=== PATIENT | female | born 1990 | race Caucasian/White ===

== ENCOUNTER 2020-03-10 02:15 | Inpatient (IN) | payer BC, OTHER ==
[2020-03-10] MEDS ORDERED: Nalbuphine 10 MG/ML Syringe IVPUSH PRN (08:25)
[2020-03-10] MEDS ORDERED: Sodium Chloride 0.9% 10 ML Syringe FLUSH PRN (08:25)
[2020-03-10] MEDS ORDERED: Ondansetron 4 MG/2 ML SDV IVPUSH PRN (08:25)
[2020-03-10] MEDS ORDERED: Oxytocin/Lactated Ringers 10 UNIT/1,000 ML BAG IV SCH ×2 (08:30)
[2020-03-10] MEDS ORDERED: Misoprostol 25 MCG (1/4 of 100 MCG) Tab VAG ONE (08:31)
--- NOTE | 2020-03-10 09:22 | PCM.LDHP ---
L&D History of Present Illness - General Date of Service: 03/10/20 Admit Problem/Dx: Patient Status Order with Admit Dx/Problem 03/10/20 08:25 Patient Status [ADT] Routine Admission Diagnosis/Problem Admission Diagnosis/Problem Source of Information: Patient History Limitations: Reports: No Limitations - History of Present Illness Introduction:: Patient is a 29 y/o at 40 2/7 wks who presents for elective IOL. Doing well. 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: 0 LMP (Approximate): - Past Surgical History HEENT Surgical History: Reports: Oral Surgery (tooth extraction) Social & Family History - Tobacco Use Smoking Status *Q: Former Smoker - Alcohol Use Alcohol Use History: No - Recreational Drug Use Recreational Drug Use: No H&P Review of Systems - Review of Systems: Review Of Systems: See Below General: Reports: No Symptoms Pulmonary: Reports: No Symptoms Cardiovascular: Reports: No Symptoms Gastrointestinal: Reports: No Symptoms Genitourinary: Reports: No Symptoms Musculoskeletal: Reports: No Symptoms Psychiatric: Reports: No Symptoms Neurological: Reports: No Symptoms L&D Exam - Exam Exam: See Below - OB Specific Contraction Intensity: Irritability Movement: Active Heart Tones: Present Heart Tones per Min: 140 Heart Rate (FHR) Variability: Moderate (6-25 bmp) Presentation: Vertex - Morales Score Morales Score Cervix Position: Midposition Morales Score Consistency: Soft Morales Score Effacement: 51-70% Morales Score Dilation: 1-2 cm Morales Score 's Station: -2 Morales Score Total: 7 - Exam General: Alert, Oriented, Cooperative Lungs: Clear to Auscultation, Normal Respiratory Effort Cardiovascular: Regular Rate, Regular Rhythm GI/Abdominal Exam: Soft, Non-Tender Genitourinary: Normal external exam Extremities: Normal Inspection Skin: Warm, Dry, Intact - Patient Data Lab Results Last 24 hrs: Laboratory Results - last 24 hr 03/10/20 Range/Units 08:40 WBC 7.03 (3.98-10.04) K/mm3 RBC 4.12 (3.98-5.22) M/mm3 Hgb 13.2 (11.2-15.7) gm/dl Hct 38.5 (34.1-44.9) % MCV 93.4 (79.4-94.8) fl MCH 32.0 (25.6-32.2) pg MCHC 34.3 (32.2-35.5) g/dl RDW Std Deviation 43.3 (36.4-46.3) fL Plt Count 185 (182-369) K/mm3 MPV 9.9 (9.4-12.3) fl Neut % (Auto) 71.2 H (34.0-71.1) % Lymph % (Auto) 20.2 (19.3-51.7) % [place] % (Auto) 7.5 (4.7-12.5) % Eos % (Auto) 0.7 (0.7-5.8) Baso % (Auto) 0.1 (0.1-1.2) % Neut # (Auto) 5.00 (1.56-6.13) K/mm3 Lymph # (Auto) 1.42 (1.18-3.74) K/mm3 [place] # (Auto) 0.53 H (0.24-0.36) K/mm3 Eos # (Auto) 0.05 (0.04-0.36) K/mm3 Baso # (Auto) 0.01 (0.01-0.08) K/mm3 Result Diagrams: 03/10/20 08:40 03/10/20 08:40 - Problem List (1) 40 weeks gestation of SNOMED Code(s): 84913334 ICD Code: Z3A.40 - 40 WEEKS GESTATION OF Status: Acute Current Visit: Yes (2) Gestational hypertension SNOMED Code(s): 497211898 ICD Code: O13.9 - GESTATIONAL HTN W/O SIGNIFICANT PROTEINURIA, UNSP TRIMESTER Status: Acute Current Visit: Yes Qualifiers: Trimester: third trimester Qualified Code(s): O13.3 - Gestational [-induced] hypertension without significant proteinuria, third trimester Problem List Initiated/Reviewed/Updated: Yes Orders Last 24hrs: Active Orders 24 hr Category Date Time Status Patient Status [ADT] Routine ADT 03/10/20 08:25 Active Activity as Tolerated [RC] PFP Care 03/10/20 08:25 Active Communication Order [RC] ASDIRECTED Care 03/10/20 08:25 Active Heart Tones [RC] ASDIRECTED Care 03/10/20 08:26 Active Non Stress Test [RC] PER UNIT ROUTINE Care 03/10/20 08:25 Active Notify Provider [RC] PFP Care 03/10/20 08:25 Active Notify Provider [RC] PRN Care 03/10/20 08:25 Active Peripheral IV Care [RC] . DIRECTED Care 03/10/20 08:26 Active Pump Management, Intrathecal [RC] ASDIRECTED Care 03/10/20 08:27 Active Vital Signs [RC] PER UNIT ROUTINE Care 03/10/20 08:25 Active Regular Diet [DIET] Diet 03/10/20 Breakfast Active CORONAVIRUS COVID-19 LESTER [MOLEC] Stat Lab 03/10/20 09:05 Received RAPID PLASMA REAGIN,RPR [CHEM] Routine Lab 03/10/20 08:40 Received TYPE AND SCREEN [BBK] Stat Lab 03/10/20 08:40 Received Lactated Ringers [Ringers, Lactated] 1,000 ml Med 03/10/20 08:30 Active IV ASDIRECTED Nalbuphine [Nubain] Med 03/10/20 08:25 Active 10 mg IVPUSH Q2H PRN Ondansetron [Zofran] Med 03/10/20 08:25 Active 4 mg IVPUSH Q4H PRN Oxytocin/Lactated Ringers [Pitocin in LR 10 Units/1,000 Med 03/10/20 08:30 Active ML] 10 unit in 1,000 ml IV .CONTINUOUS Oxytocin/Lactated Ringers [Pitocin in LR 10 Units/1,000 Med 03/10/20 08:30 Active ML] 10 unit in 1,000 ml IV TITRATE Sodium Chloride 0.9% [Saline Flush] Med 03/10/20 08:25 Active 10 ml FLUSH ASDIRECTED PRN Electronic Heart Tones Ext w TOCO [WOMSER] Oth 03/10/20 08:25 Ordered Routine Electronic Heart Tones Internal [WOMSER] Per Unit Oth 03/10/20 08:25 Ordered Routine Peripheral IV Insertion Adult [OM.PC] Routine Oth 03/10/20 08:25 Ordered Resuscitation Status Routine Resus Stat 03/10/20 08:25 Ordered Medication Orders Oxytocin/Lactated Ringer's (Pitocin In Lr 10 Units/1,000 Ml) 10 unit in 1,000 mls @ 12 mls/hr IV TITRATE TESFAYE; Protocol Oxytocin/Lactated Ringer's (Pitocin In Lr 10 Units/1,000 Ml) 10 unit in 1,000 mls @ 100 mls/hr IV .CONTINUOUS TESFAYE Lactated Ringer's (Ringers, Lactated) 1,000 mls @ 100 mls/hr IV ASDIRECTED TESFAYE Nalbuphine HCl (Nubain) 10 mg IVPUSH Q2H PRN PRN Reason: Pain Ondansetron HCl (Zofran) 4 mg IVPUSH Q4H PRN PRN Reason: Nausea/Vomiting Sodium Chloride (Saline Flush) 10 ml FLUSH ASDIRECTED PRN PRN Reason: Keep Vein Open Assessment/Plan Comment:: * Labs to be done. Patient with mild range BP's. Will add on preeclamptic labs * Cytotec placed and ulloa bulb. Will transition to pitocin and AROM when able * GBS negative * Pain management per patient preference * Anticipate
[2020-03-10] MEDS ORDERED: Bupivacaine/fentaNYL/NS 100 ML Bag EPIDUR PRN (11:00)
[2020-03-10] MEDS ORDERED: fentaNYL 100 MCG/2 ML SDV EPIDUR PRN (11:00)
[2020-03-10] MEDS ORDERED: ePHEDrine 50 MG/ML SDV IVPUSH PRN (11:00)
[2020-03-10] MEDS ORDERED: diphenhydrAMINE 50 MG/ML SDV IVPUSH PRN (11:00)
[2020-03-10] MEDS: Lactated Ringers 1,000 ML IV SCH ×3 (12:03→22:21)
--- NOTE | 2020-03-10 16:10 | PCM.PNLD ---
Labor Progress Note - VS & Meds Active Medications: Current Medications Diphenhydramine HCl (Benadryl) 25 mg IVPUSH Q6H PRN PRN Reason: pruritis Ephedrine Sulfate (Ephedrine Sulfate) 5 mg IVPUSH ASDIRECTED PRN PRN Reason: Hypotension Fentanyl (Sublimaze) 100 mcg EPIDUR Q3H PRN PRN Reason: Pain Fentanyl/Bupivacaine HCl (Fentanyl/Bupivacaine/Ns 2 Mcg-0.125% 100 Ml) 100 ml EPIDUR ASDIRECTED PRN PRN Reason: Pain Oxytocin/Lactated Ringer's (Pitocin In Lr 10 Units/1,000 Ml) 10 unit in 1,000 mls @ 12 mls/hr IV TITRATE TESFAYE; Protocol Last Admin: 03/10/20 13:57 Dose: 2 munits/min, 12 mls/hr Documented by: Oxytocin/Lactated Ringer's (Pitocin In Lr 10 Units/1,000 Ml) 10 unit in 1,000 mls @ 100 mls/hr IV .CONTINUOUS TESFAYE Lactated Ringer's (Ringers, Lactated) 1,000 mls @ 100 mls/hr IV ASDIRECTED TESFAYE Last Admin: 03/10/20 12:03 Dose: 100 mls/hr Documented by: Nalbuphine HCl (Nubain) 10 mg IVPUSH Q2H PRN PRN Reason: Pain Ondansetron HCl (Zofran) 4 mg IVPUSH Q4H PRN PRN Reason: Nausea/Vomiting Sodium Chloride (Saline Flush) 10 ml FLUSH ASDIRECTED PRN PRN Reason: Keep Vein Open Discontinued Medications Misoprostol (Cytotec) 25 mcg VAG ONETIME ONE Stop: 03/10/20 08:32 Last Admin: 03/10/20 09:12 Dose: 25 mcg Documented by: - Uterine Contractions Uterine Monitoring Mode: External [place] Contraction Intensity: Mild Uterine Resting Tone: Soft - Monitoring Monitor Mode: External Ultrasound Heart Rate (FHR) Baseline: 150 Heart Rate (FHR) Variability: Moderate (6-25 bmp) Accelerations: Present, 15x15 Decelerations: None Strip Review: Category I - Vaginal Exam Dilation (cm): 4 Effacement (Percent): 75 Station: -2 Cervical Position: Midposition - Labor Progress (Free Text) Labor Progress: Doing well. Pitocin at 4. AROM performed.
--- NOTE | 2020-03-10 18:52 | PCM.PREANE ---
Preanesthetic Assessment - Procedure Proposed Procedure: SANDY - Anesthesia/Transfusion/Family Hx Anesthesia History: No Prior Anesthesia Family History of Anesthesia Reaction: No Transfusion History: No Prior Transfusion(s) Type of Transfusion Reactions: Reports: Unknown - Review of Systems General: No Symptoms Pulmonary: No Symptoms Cardiovascular: No Symptoms Gastrointestinal: No Symptoms Neurological: No Symptoms Other: Reports: None - Physical Assessment Height: 5 ft 5 in Weight: 103.419 kg ASA Class: 2 Mental Status: Alert & Oriented x3 Airway Class: Mallampati = 1 Dentition: Reports: Normal Dentition Thyro-Mental Finger Breadths: 3 Mouth Opening Finger Breadths: 3 ROM/Head Extension: Full Cardiovascular: Regular Rate, Regular Rhythm - Lab Values: Laboratory Last Values WBC 7.03 K/mm3 (3.98-10.04) 03/10/20 08:40 RBC 4.12 M/mm3 (3.98-5.22) 03/10/20 08:40 Hgb 13.2 gm/dl (11.2-15.7) 03/10/20 08:40 Hct 38.5 % (34.1-44.9) 03/10/20 08:40 MCV 93.4 fl (79.4-94.8) 03/10/20 08:40 MCH 32.0 pg (25.6-32.2) 03/10/20 08:40 MCHC 34.3 g/dl (32.2-35.5) 03/10/20 08:40 RDW Std Deviation 43.3 fL (36.4-46.3) 03/10/20 08:40 Plt Count 185 K/mm3 (182-369) 03/10/20 08:40 MPV 9.9 fl (9.4-12.3) 03/10/20 08:40 Neut % (Auto) 71.2 % (34.0-71.1) H 03/10/20 08:40 Lymph % (Auto) 20.2 % (19.3-51.7) 03/10/20 08:40 [place] % (Auto) 7.5 % (4.7-12.5) 03/10/20 08:40 Eos % (Auto) 0.7 (0.7-5.8) 03/10/20 08:40 Baso % (Auto) 0.1 % (0.1-1.2) 03/10/20 08:40 Neut # (Auto) 5.00 K/mm3 (1.56-6.13) 03/10/20 08:40 Lymph # (Auto) 1.42 K/mm3 (1.18-3.74) 03/10/20 08:40 [place] # (Auto) 0.53 K/mm3 (0.24-0.36) H 03/10/20 08:40 Eos # (Auto) 0.05 K/mm3 (0.04-0.36) 03/10/20 08:40 Baso # (Auto) 0.01 K/mm3 (0.01-0.08) 03/10/20 08:40 Creatinine 0.7 mg/dL (0.55-1.02) 03/10/20 08:40 Est Cr Clr Drug Dosing 105.74 mL/min 03/10/20 08:40 Estimated GFR (MDRD) > 60 mL/min (>60) 03/10/20 08:40 AST 18 U/L (15-37) 03/10/20 08:40 ALT 16 U/L (14-59) 03/10/20 08:40 SARS-CoV-2 RNA (LESTER) Negative (NEGATIVE) 03/10/20 09:05 Blood Type O POSITIVE 03/10/20 08:40 Gel Antibody Screen Negative 03/10/20 08:40 - Allergies Allergies/Adverse Reactions: Allergies Allergy/AdvReac Type Severity Reaction Status Date / Time No Known Allergies Allergy Verified 03/10/20 09:11 - Blood Blood Available: No - Acknowledgements Anesthesia Type Planned: Epidural Pt an Appropriate Candidate for the Planned Anesthesia: Yes Alternatives and Risks of Anesthesia Discussed w Pt/Guardian: Yes Pt/Guardian Understands and Agrees with Anesthesia Plan: Yes PreAnesthesia Questionnaire Cardiovascular History: Reports: None Respiratory History: Reports: None Gastrointestinal History: Reports: GERD 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: : 1 Para: 0 Neurological History: Reports: Migraines Psychiatric History: Reports: Anxiety, Depression Other Psychiatric History: Hx of anxiety and depression, pt states she has not been on meds for years Endocrine/Metabolic History: Reports: None - Past Surgical History HEENT Surgical History: Reports: Oral Surgery (tooth extraction) - SUBSTANCE USE Smoking Status *Q: Former Smoker Tobacco Use Within Last Twelve Months: No Second Hand Smoke Exposure: No Days Per Week of Alcohol Use: 0 Recreational Drug Use History: No - HOME MEDS Home Medications: Home Meds Acetaminophen [Tylenol] 1,000 mg PO Q4H PRN 03/10/20 [History] Loratadine [Claritin] 10 mg PO DAILY 03/10/20 [History] Pnv No.95/Ferrous Fum/Folic AC [ Tablet] 1 each PO DAILY 03/10/20 [History] - CURRENT (IN HOUSE) MEDS Current Meds: Current Medications Diphenhydramine HCl (Benadryl) 25 mg IVPUSH Q6H PRN PRN Reason: pruritis Ephedrine Sulfate (Ephedrine Sulfate) 5 mg IVPUSH ASDIRECTED PRN PRN Reason: Hypotension Fentanyl (Sublimaze) 100 mcg EPIDUR Q3H PRN PRN Reason: Pain Fentanyl/Bupivacaine HCl (Fentanyl/Bupivacaine/Ns 2 Mcg-0.125% 100 Ml) 100 ml EPIDUR ASDIRECTED PRN PRN Reason: Pain Oxytocin/Lactated Ringer's (Pitocin In Lr 10 Units/1,000 Ml) 10 unit in 1,000 mls @ 12 mls/hr IV TITRATE TESFAYE; Protocol Last Admin: 03/10/20 13:57 Dose: 2 munits/min, 12 mls/hr Documented by: Oxytocin/Lactated Ringer's (Pitocin In Lr 10 Units/1,000 Ml) 10 unit in 1,000 mls @ 100 mls/hr IV .CONTINUOUS TESFAYE Lactated Ringer's (Ringers, Lactated) 1,000 mls @ 100 mls/hr IV ASDIRECTED TESFAYE Last Admin: 03/10/20 12:03 Dose: 100 mls/hr Documented by: Nalbuphine HCl (Nubain) 10 mg IVPUSH Q2H PRN PRN Reason: Pain Ondansetron HCl (Zofran) 4 mg IVPUSH Q4H PRN PRN Reason: Nausea/Vomiting Sodium Chloride (Saline Flush) 10 ml FLUSH ASDIRECTED PRN PRN Reason: Keep Vein Open Discontinued Medications Misoprostol (Cytotec) 25 mcg VAG ONETIME ONE Stop: 03/10/20 08:32 Last Admin: 03/10/20 09:12 Dose: 25 mcg Documented by:
[2020-03-11] MEDS ORDERED: Bupivacaine 0.25% 10 ML SDV ONE
[2020-03-11] MEDS: Lactated Ringers 1,000 ML IV SCH (01:24)
[2020-03-11] MEDS ORDERED: Sodium Chloride 0.9% 10 ML Syringe FLUSH PRN (01:39)
[2020-03-11] MEDS ORDERED: Citric Acid/Sodium Citrate Solution 30 ML Cup PO ONE (01:39)
[2020-03-11] MEDS ORDERED: Metoclopramide 10 MG/2 ML SDV IVPUSH ONE (01:39)
[2020-03-11] MEDS ORDERED: Lactated Ringers 1,000 ML IV SCH (01:45)
--- NOTE | 2020-03-11 01:47 | PCM.SN.2 ---
- Free Text/Narrative Note: 0145 Called in earlier this AM for concerns of recurrent variable decelerations. Patient 8-9 cm dilated. These did resolve with position changes. Reviewed with family that we would continue to monitor closely and move toward vaginal delivery. Unfortunately now baby has had baseline shift to the 190's-200. Is complete, but do not think we should continue to monitor. Do recommend moving forward with for concerns of well being. Family agrees. OR crew, peds, etc notified. Gia Shankar MD
--- NOTE | 2020-03-11 01:47 | PCM.OPNOTE ---
- General Post-Op/Procedure Note Date of Surgery/Procedure: 03/11/20 Operative Procedure(s): Primary low transverse - vacuum assist Findings: Baby girl in a vertex presentation. APGARS of 2, 7, 9. Weight of 11 lbs 4 oz. Grossly normal appearance of the uterus, fallopian tubes, and ovaries. Pre Op Diagnosis: 40 3/7 wks gestation. Non reassuring status Post-Op Diagnosis: Same. macrosomia Anesthesia Technique: Epidural Primary Surgeon: Gia Shankar Secondary Surgeon: Yanet Guerrero Anesthesia Provider: May Mims Reason Rice Milling Supervisor Was Necessary: BMI of patient. Speed/safety of procedure Pathology: Cord gasses collected. Cord blood collected. placenta discarded Fluid Replacement, Intraop: 1,300 Output, Urine Amount: 225 EBL in mLs: 2,000 Complications: None Condition: Good Free Text/Narrative:: The risks, benefits, indications, potential complications, and alternatives were explained to the patient and informed consent obtained. After induction of anesthesia, the patient was placed in a supine position and then draped and prepped in the usual sterile manner. A Pfannenstiel incision was made and carried down through the subcutaneous tissue to the fascia. Fascial incision was made and extended transversely. The fascia was from the underlying rectus tissue superiorly and inferiorly. The peritoneum was identified and entered. Peritoneal incision was extended longitudinally. The utero-vesical peritoneal reflection was incised transversely and the bladder flap was bluntly freed from the lower uterine segment. A low transverse uterine incision was made sharply with a scalpel and extended bluntly in a cephalocaudad direction. Hand placed into the hysterotomy and attempt made to bring baby through. Baby did lose tone at this time and began to rotate. Hand placed deeper into the uterus and baby brought level with hysterotomy. Vacuum placed and infant able to be delivered with gentle traction and also normal fundal pressure. Cord clamped and cut. Baby handed to awaiting Cover Operator. APGARS as above. Cord segment obtained for cord gasses. Cord blood was obtained for evaluation. The placenta was removed intact and appeared normal. The uterus was exteriorized and cleared of clots. Swiftly bleeding vessel noted at left aspect of hysterotomy. This was controlled with several interrupted sutures of 0 Vicryl placed in figure of eight fashion. Next, the uterine incision was closed with running locked sutures of 0 Vicryl. Hemostasis was obtained with second imbricating layer of 0 Vicryl. The uterus was then placed back into the abdomen. The infracolic gutters were cleared of blood clots. The fascia was then reapproximated with running sutures of 0 Vicryl. The subcutaneous tissue was irrigated with sterile warm normal saline, hemostasis obtained with cautery. This layer was closed with a running 0 Vicryl. The skin was reapproximated with running Subcuticular 4-0 monocryl sutures. Instrument, sponge, and needle counts were correct prior the abdominal closure and at the conclusion of the case. 2nd dose of Ancef given in PACU given EBL.
[2020-03-11] MEDS ORDERED: Morphine PF 1 MG/ML Amp ONE (01:55)
[2020-03-11] MEDS ORDERED: Ketorolac 30 MG/ML SDV ONE (01:55)
[2020-03-11] MEDS ORDERED: Lactated Ringers 2,000 ML ONE (01:55)
[2020-03-11] MEDS ORDERED: ceFAZolin 1 GM Vial ONE ×2 (01:55→02:51)
[2020-03-11] MEDS ORDERED: Oxytocin 10 Units/1 ML SDV ONE (01:55)
[2020-03-11] MEDS ORDERED: Ondansetron 4 MG/2 ML SDV ONE (01:55)
[2020-03-11] MEDS ORDERED: Sodium Bicarbonate 8.4% 50 MEQ/50 ML SDV ONE (01:56)
[2020-03-11] MEDS ORDERED: Lidocaine 2% with EPINEPHrine 1:200,000 20 ML SDV ONE (01:56)
[2020-03-11] MEDS ORDERED: fentaNYL 100 MCG/2 ML SDV ONE (01:58)
[2020-03-11] MEDS ORDERED: Azithromycin 500 MG in Sodium Chloride 0.9% 250 ML IV ONE (02:00)
[2020-03-11] MEDS ORDERED: ceFAZolin 2 GM in Premix Bag 1 BAG IV ONE ×2 (02:00→03:02)
[2020-03-11] MEDS ORDERED: Meperidine 50 MG/ML Vial ONE (02:20)
[2020-03-11] MEDS ORDERED: Carboprost Tromethamine 250 MCG/1 ML Amp ONE (02:29)
[2020-03-11] MEDS ORDERED: Ondansetron 4 MG/2 ML SDV IVPUSH PRN (02:33)
[2020-03-11] MEDS ORDERED: diphenhydrAMINE 50 MG/ML SDV IVPUSH PRN ×2 (02:33→04:38)
[2020-03-11] MEDS ORDERED: fentaNYL 100 MCG/2 ML SDV IVPUSH PRN (02:33)
--- NOTE | 2020-03-11 03:06 | PCM.POSTAN ---
POST ANESTHESIA ASSESSMENT - MENTAL STATUS Mental Status: Alert, Oriented - VITAL SIGNS Vital Signs: Last Vital Signs Temp 98.8 F 03/10/20 08:41 Pulse 83 03/10/20 08:41 Resp 16 03/10/20 08:41 BP 138/92 H 03/10/20 08:41 Pulse Ox 99 03/10/20 08:41 0253 110/83 126 18 98.6 99% - RESPIRATORY Respiratory Status: Respiratory Rate WNL, Airway Patent, O2 Saturation Stable, Supplemental Oxygen - CARDIOVASCULAR CV Status: Pulse Rate WNL, Blood Pressure Stable - GASTROINTESTINAL GI Status: No Symptoms - PAIN Pain Score: 0 (intermittent shakes) - POST OP HYDRATION Hydration Status: Adequate & Stable
[2020-03-11] MEDS ORDERED: Acetaminophen/oxyCODONE 325-5 MG Tab PO PRN (04:38)
[2020-03-11] MEDS ORDERED: Ibuprofen 600 MG Tab PO PRN (04:38)
[2020-03-11] MEDS ORDERED: Ondansetron 4 MG/2 ML SDV IV PRN (04:38)
[2020-03-11] MEDS ORDERED: Dextrose 5%-Lactated Ringers 1,000 ML IV SCH (04:38)
[2020-03-11] MEDS: Acetaminophen/oxyCODONE 325-5 MG Tab PO PRN ×2 (05:49→13:31)
--- NOTE | 2020-03-11 07:58 | PCM48HPAN ---
Post Anesthesia Note - EVALUATION WITHIN 48HRS OF ANESTHETIC Vital Signs in Normal Range: Yes Patient Participated in Evaluation: Yes Respiratory Function Stable: Yes Airway Patent: Yes Cardiovascular Function Stable: Yes Hydration Status Stable: Yes Pain Control Satisfactory: Yes Nausea and Vomiting Control Satisfactory: Yes Mental Status Recovered: Yes Vital Signs: Last Vital Signs Temp 37.1 C 03/11/20 03:40 Pulse 83 03/10/20 08:41 Resp 18 03/11/20 03:40 BP 117/63 03/11/20 03:40 Pulse Ox 96 03/11/20 03:40
[2020-03-11] MEDS: Ketorolac 30 MG/ML SDV IVPUSH SCH ×3 (09:07→20:23)
[2020-03-11] MEDS: Simethicone 80 MG Tab.Chew PO PRN (13:31)
[2020-03-12] MEDS: Simethicone 80 MG Tab.Chew PO PRN (01:13)
[2020-03-12] MEDS: Ibuprofen 600 MG Tab PO PRN (04:14)
--- NOTE | 2020-03-12 07:54 | PCM.PNPP ---
- General Info Date of Service: 03/12/20 Functional Status: Reports: Pain Controlled, Tolerating Diet, Ambulating, Urinating - Review of Systems General: Reports: No Symptoms Pulmonary: Reports: No Symptoms. Denies: Shortness of Breath Cardiovascular: Reports: No Symptoms. Denies: Lightheadedness Gastrointestinal: Reports: Abdominal Pain (managed with medications ) Genitourinary: Reports: No Symptoms Musculoskeletal: Reports: No Symptoms - Patient Data Vital Signs - Most Recent: Last Vital Signs Temp 36.9 C 03/12/20 04:06 Pulse 96 03/12/20 04:06 Resp 16 03/12/20 04:06 BP 121/56 L 03/12/20 04:06 Pulse Ox 97 03/12/20 04:06 Weight - Most Recent: 103.419 kg I&O - Last 24 Hours: Intake & Output 03/11/20 03/12/20 03/12/20 22:59 06:59 14:59 Intake Total 1000 1300 Output Total 575 1200 525 Balance 425 -1200 775 Lab Results - Last 24 Hours: Laboratory Results - last 24 hr 03/11/20 03/12/20 03/12/20 Range/Units 10:05 06:40 06:40 WBC 15.93 H 13.21 H (3.98-10.04) K/mm3 RBC 3.24 L 3.03 L (3.98-5.22) M/mm3 Hgb 10.3 L D 9.6 L (11.2-15.7) gm/dl Hct 30.6 L 29.2 L (34.1-44.9) % MCV 94.4 96.4 H (79.4-94.8) fl MCH 31.8 31.7 (25.6-32.2) pg MCHC 33.7 32.9 (32.2-35.5) g/dl RDW Std Deviation 42.9 44.3 (36.4-46.3) fL Plt Count 159 L 183 (182-369) K/mm3 MPV 9.6 10.1 (9.4-12.3) fl Creatinine 0.9 (0.55-1.02) mg/dL Est Cr Clr Drug Dosing 82.25 mL/min Estimated GFR (MDRD) > 60 (>60) mL/min Med Orders - Current: Current Medications Diphenhydramine HCl (Benadryl) 25 mg IVPUSH Q6H PRN PRN Reason: Pruritis Last Admin: 03/11/20 05:46 Dose: 25 mg Documented by: Diphenhydramine HCl (Benadryl) 25 mg IVPUSH Q6H PRN PRN Reason: Itching or Nausea Docusate Sodium (Colace) 100 mg PO Q12H PRN PRN Reason: Constipation Fentanyl (Sublimaze) 50 mcg IVPUSH Q5M PRN PRN Reason: Pain Ibuprofen (Motrin) 600 mg PO Q6H PRN PRN Reason: mild pain or fever Last Admin: 03/12/20 04:14 Dose: 600 mg Documented by: Ondansetron HCl (Zofran) 4 mg IVPUSH ONETIME PRN PRN Reason: Nausea/Vomiting Ondansetron HCl (Zofran) 4 mg IV Q8H PRN PRN Reason: Nausea/Vomiting Oxycodone/Acetaminophen (Percocet 325-5 Mg) 1 tab PO Q4H PRN PRN Reason: Pain (moderate 4-6) Last Admin: 03/12/20 01:10 Dose: 1 tab Documented by: Oxycodone/Acetaminophen (Percocet 325-5 Mg) 2 tab PO Q4H PRN PRN Reason: Pain (severe 7-10) Last Admin: 03/11/20 13:31 Dose: 2 tab Documented by: Simethicone (Simethicone) 80 mg PO Q6H PRN PRN Reason: Gas Last Admin: 03/12/20 01:13 Dose: 80 mg Documented by: Discontinued Medications Bupivacaine HCl (Sensorcaine-Mpf 0.25%) 10 ml .ROUTE .STK-MED ONE Stop: 03/11/20 00:01 Carboprost Tromethamine (Hemabate Ds) Confirm Administered Dose 250 mcg .ROUTE .STK-MED ONE Stop: 03/11/20 02:30 Cefazolin Sodium (Ancef) Confirm Administered Dose 2 gm .ROUTE .STK-MED ONE Stop: 03/11/20 01:56 Cefazolin Sodium (Ancef) Confirm Administered Dose 2 gm .ROUTE .STK-MED ONE Stop: 03/11/20 02:52 Citric Acid/Sodium Citrate (Bicitra Solution) 30 ml PO ONETIME ONE Stop: 03/11/20 01:40 Last Admin: 03/11/20 01:47 Dose: 30 ml Documented by: Diphenhydramine HCl (Benadryl) 25 mg IVPUSH Q6H PRN PRN Reason: pruritis Ephedrine Sulfate (Ephedrine Sulfate) 5 mg IVPUSH ASDIRECTED PRN PRN Reason: Hypotension Fentanyl (Sublimaze) 100 mcg EPIDUR Q3H PRN PRN Reason: Pain Last Admin: 03/10/20 20:43 Dose: 100 mcg Documented by: Fentanyl (Sublimaze) Confirm Administered Dose 100 mcg .ROUTE .STK-MED ONE Stop: 03/11/20 01:59 Fentanyl/Bupivacaine HCl (Fentanyl/Bupivacaine/Ns 2 Mcg-0.125% 100 Ml) 100 ml EPIDUR ASDIRECTED PRN PRN Reason: Pain Last Admin: 03/10/20 20:43 Dose: 100 ml Documented by: Oxytocin/Lactated Ringer's (Pitocin In Lr 10 Units/1,000 Ml) 10 unit in 1,000 mls @ 12 mls/hr IV TITRATE TESFAYE; Protocol Last Titration: 03/11/20 01:38 Dose: 0 munits/min, 0 mls/hr Documented by: Oxytocin/Lactated Ringer's (Pitocin In Lr 10 Units/1,000 Ml) 10 unit in 1,000 mls @ 100 mls/hr IV .CONTINUOUS TESFAYE Lactated Ringer's (Ringers, Lactated) 1,000 mls @ 100 mls/hr IV ASDIRECTED TESFAYE Last Admin: 03/11/20 01:24 Dose: 999 mls/hr Documented by: Lactated Ringer's (Ringers, Lactated) 1,000 mls @ 125 mls/hr IV ASDIRECTED TESFAYE Azithromycin 500 mg/ Sodium (Chloride) 250 mls @ 250 mls/hr IV ONETIME ONE Stop: 03/11/20 02:59 Last Admin: 03/11/20 02:00 Dose: 250 mls/hr Documented by: Cefazolin Sodium/Dextrose 2 gm (/ Premix) 50 mls @ 100 mls/hr IV ONETIME ONE Stop: 03/11/20 02:29 Last Admin: 03/11/20 06:27 Dose: Not Given Documented by: Lactated Ringer's (Ringers, Lactated) Confirm Administered Dose 2,000 mls @ as directed .ROUTE .STK-MED ONE Stop: 03/11/20 01:56 Cefazolin Sodium/Dextrose 2 gm (/ Premix) 50 mls @ 100 mls/hr IV ONETIME ONE Stop: 03/11/20 03:31 Last Admin: 03/11/20 06:49 Dose: Not Given Documented by: Dextrose/Lactated Ringer's (Dextrose 5%-Lactated Ringers) 1,000 mls @ 125 mls/hr IV ASDIRECTED [facility] Stop: 03/11/20 12:37 Last Admin: 03/11/20 05:19 Dose: 125 mls/hr Documented by: Ibuprofen (Motrin) 600 mg PO Q6H PRN PRN Reason: mild pain or fever Ketorolac Tromethamine (Toradol) Confirm Administered Dose 30 mg .ROUTE .STK-MED ONE Stop: 03/11/20 01:56 Ketorolac Tromethamine (Toradol) 30 mg IVPUSH Q6H [facility] Stop: 03/11/20 21:01 Last Admin: 03/11/20 20:23 Dose: 30 mg Documented by: Lidocaine/Epinephrine (Xylocaine-Mpf 2%-Epi 1:200,000) Confirm Administered Dose 20 ml .ROUTE .STK-MED ONE Stop: 03/11/20 01:57 Meperidine HCl (Meperidine) Confirm Administered Dose 50 mg .ROUTE .STK-MED ONE Stop: 03/11/20 02:21 Metoclopramide HCl (Reglan) 10 mg IVPUSH ONETIME ONE Stop: 03/11/20 01:40 Last Admin: 03/11/20 01:49 Dose: 10 mg Documented by: Miscellaneous Medication (Phenylephrine 1 Mg/10 Ml-Ns) Confirm Administered Dose 1 mg .ROUTE .STK-MED ONE Stop: 03/11/20 02:36 Misoprostol (Cytotec) 25 mcg VAG ONETIME ONE Stop: 03/10/20 08:32 Last Admin: 03/10/20 09:12 Dose: 25 mcg Documented by: Morphine Sulfate (Duramorph Pf) Confirm Administered Dose 1 mg .ROUTE .STK-MED ONE Stop: 03/11/20 01:56 Nalbuphine HCl (Nubain) 10 mg IVPUSH Q2H PRN PRN Reason: Pain Ondansetron HCl (Zofran) 4 mg IVPUSH Q4H PRN PRN Reason: Nausea/Vomiting Ondansetron HCl (Zofran) Confirm Administered Dose 4 mg .ROUTE .STK-MED ONE Stop: 03/11/20 01:56 Oxytocin (Pitocin) Confirm Administered Dose 10 unit .ROUTE .STK-MED ONE Stop: 03/11/20 01:56 Sodium Bicarbonate (Sodium Bicarbonate 8.4%) Confirm Administered Dose 50 meq .ROUTE .STK-MED ONE Stop: 03/11/20 01:57 Sodium Chloride (Saline Flush) 10 ml FLUSH ASDIRECTED PRN PRN Reason: Keep Vein Open Sodium Chloride (Saline Flush) 10 ml FLUSH ASDIRECTED PRN PRN Reason: Keep Vein Open - Interaction Disposition, : in Room with Family Infant Interaction: Holding Infant Feeding: Attempted ; Nursed Fair/Poor Support Person: - Recovery Exam Fundal Tone: Firm Fundal Level: At Umbilicus Fundal Placement: Midline Lochia Amount: Small Lochia Color: Rubra/Red Perineum Description: Intact, Minimal Bruising/Swelling Episiotomy/Laceration: None Bladder Status: Voiding Urinary Elimination: Voided - Exam General: Alert, Oriented, Cooperative Lungs: Clear to Auscultation, Normal Respiratory Effort Cardiovascular: Regular Rate, Regular Rhythm GI/Abdominal Exam: Soft, Tender (appropriate post op ) Extremities: Normal Inspection Skin: Warm, Dry, Intact Wound/Incisions: Healing Well, No Drainage - Problem List & Annotations (1) 40 weeks gestation of SNOMED Code(s): 29780319 Code(s): Z3A.40 - 40 WEEKS GESTATION OF Status: Acute Current Visit: Yes (2) Gestational hypertension SNOMED Code(s): 517164115 Code(s): O13.9 - GESTATIONAL HTN W/O SIGNIFICANT PROTEINURIA, UNSP TRIMESTER Status: Acute Current Visit: Yes Qualifiers: Trimester: third trimester Qualified Code(s): O13.3 - Gestational [-induced] hypertension without significant proteinuria, third trimester (3) Non-reassuring status SNOMED Code(s): 649847549 Code(s): MPM0669 - Status: Acute Current Visit: Yes (4) S/P primary low transverse SNOMED Code(s): 612275301, 15694449, 978359181, 091012701, 319728614 Code(s): Z98.891 - HISTORY OF UTERINE SCAR FROM PREVIOUS SURGERY Status: Acute Current Visit: Yes (5) macrosomia SNOMED Code(s): 38116227 Code(s): O36.60X0 - MATERNAL CARE FOR EXCESS GROWTH, UNSP TRIMESTER, UNSP Status: Acute Current Visit: Yes (6) Acute blood loss anemia SNOMED Code(s): 718383173 Code(s): D62 - ACUTE POSTHEMORRHAGIC ANEMIA Status: Acute Current Visit: Yes - Problem List Review Problem List Initiated/Reviewed/Updated: Yes - My Orders Last 24 Hours: My Active Orders 03/11/20 Breakfast Regular Diet [DIET] 03/11/20 12:02 Simethicone 80 mg PO Q6H PRN 03/12/20 03:00 Ibuprofen [Motrin] 600 mg PO Q6H PRN 03/12/20 03:04 Urinary Catheter Removal [RC] Per Unit Routine - Assessment Assessment:: POD#1 - Plan Plan:: * CBC today with appropriate drop from surgery. Will continue to monitor as needed. Will potentially repeat tomorrow pending clinical course * Breast feeding with some supplementation * Routine cares * Discharge home in 1-2 days
[2020-03-12] MEDS: Acetaminophen/oxyCODONE 325-5 MG Tab PO PRN ×3 (09:27→20:26)
[2020-03-13] MEDS: Ibuprofen 600 MG Tab PO PRN ×2 (00:25→10:08)
[2020-03-13] MEDS: Acetaminophen/oxyCODONE 325-5 MG Tab PO PRN ×3 (05:23→21:12)
--- NOTE | 2020-03-13 07:03 | PCM.PNPP ---
- General Info Date of Service: 03/13/20 Functional Status: Reports: Pain Controlled, Tolerating Diet, Ambulating, Urinating - Review of Systems General: Reports: Fatigue Pulmonary: Reports: No Symptoms Cardiovascular: Reports: No Symptoms Gastrointestinal: Reports: Abdominal Pain (medications controlling symptoms ) Genitourinary: Reports: No Symptoms Musculoskeletal: Reports: No Symptoms Neurological: Reports: No Symptoms - Patient Data Vital Signs - Most Recent: Last Vital Signs Temp 35.9 C L 03/13/20 05:16 Pulse 77 03/13/20 05:16 Resp 16 03/13/20 05:16 BP 142/85 H 03/13/20 05:16 Pulse Ox 98 03/13/20 05:16 Weight - Most Recent: 103.419 kg I&O - Last 24 Hours: Intake & Output 03/12/20 03/13/20 03/13/20 22:59 06:59 14:59 Intake Total 180 Balance 180 Lab Results - Last 24 Hours: Laboratory Results - last 24 hr 03/12/20 03/12/20 Range/Units 06:40 06:40 WBC 13.21 H (3.98-10.04) K/mm3 RBC 3.03 L (3.98-5.22) M/mm3 Hgb 9.6 L (11.2-15.7) gm/dl Hct 29.2 L (34.1-44.9) % MCV 96.4 H (79.4-94.8) fl MCH 31.7 (25.6-32.2) pg MCHC 32.9 (32.2-35.5) g/dl RDW Std Deviation 44.3 (36.4-46.3) fL Plt Count 183 (182-369) K/mm3 MPV 10.1 (9.4-12.3) fl Creatinine 0.9 (0.55-1.02) mg/dL Est Cr Clr Drug Dosing 82.25 mL/min Estimated GFR (MDRD) > 60 (>60) mL/min Med Orders - Current: Current Medications Diphenhydramine HCl (Benadryl) 25 mg IVPUSH Q6H PRN PRN Reason: Itching or Nausea Docusate Sodium (Colace) 100 mg PO Q12H PRN PRN Reason: Constipation Ibuprofen (Motrin) 600 mg PO Q6H PRN PRN Reason: mild pain or fever Last Admin: 03/13/20 00:25 Dose: 600 mg Documented by: Ondansetron HCl (Zofran) 4 mg IV Q8H PRN PRN Reason: Nausea/Vomiting Oxycodone/Acetaminophen (Percocet 325-5 Mg) 1 tab PO Q4H PRN PRN Reason: Pain (moderate 4-6) Last Admin: 03/12/20 01:10 Dose: 1 tab Documented by: Oxycodone/Acetaminophen (Percocet 325-5 Mg) 2 tab PO Q4H PRN PRN Reason: Pain (severe 7-10) Last Admin: 03/13/20 05:23 Dose: 2 tab Documented by: Simethicone (Simethicone) 80 mg PO Q6H PRN PRN Reason: Gas Last Admin: 03/12/20 01:13 Dose: 80 mg Documented by: Discontinued Medications Bupivacaine HCl (Sensorcaine-Mpf 0.25%) 10 ml .ROUTE .STK-MED ONE Stop: 03/11/20 00:01 Carboprost Tromethamine (Hemabate Ds) Confirm Administered Dose 250 mcg .ROUTE .STK-MED ONE Stop: 03/11/20 02:30 Cefazolin Sodium (Ancef) Confirm Administered Dose 2 gm .ROUTE .STK-MED ONE Stop: 03/11/20 01:56 Cefazolin Sodium (Ancef) Confirm Administered Dose 2 gm .ROUTE .STK-MED ONE Stop: 03/11/20 02:52 Citric Acid/Sodium Citrate (Bicitra Solution) 30 ml PO ONETIME ONE Stop: 03/11/20 01:40 Last Admin: 03/11/20 01:47 Dose: 30 ml Documented by: Diphenhydramine HCl (Benadryl) 25 mg IVPUSH Q6H PRN PRN Reason: pruritis Diphenhydramine HCl (Benadryl) 25 mg IVPUSH Q6H PRN PRN Reason: Pruritis Last Admin: 03/11/20 05:46 Dose: 25 mg Documented by: Ephedrine Sulfate (Ephedrine Sulfate) 5 mg IVPUSH ASDIRECTED PRN PRN Reason: Hypotension Fentanyl (Sublimaze) 100 mcg EPIDUR Q3H PRN PRN Reason: Pain Last Admin: 03/10/20 20:43 Dose: 100 mcg Documented by: Fentanyl (Sublimaze) Confirm Administered Dose 100 mcg .ROUTE .STK-MED ONE Stop: 03/11/20 01:59 Fentanyl (Sublimaze) 50 mcg IVPUSH Q5M PRN PRN Reason: Pain Fentanyl/Bupivacaine HCl (Fentanyl/Bupivacaine/Ns 2 Mcg-0.125% 100 Ml) 100 ml EPIDUR ASDIRECTED PRN PRN Reason: Pain Last Admin: 03/10/20 20:43 Dose: 100 ml Documented by: Oxytocin/Lactated Ringer's (Pitocin In Lr 10 Units/1,000 Ml) 10 unit in 1,000 mls @ 12 mls/hr IV TITRATE TESFAYE; Protocol Last Titration: 03/11/20 01:38 Dose: 0 munits/min, 0 mls/hr Documented by: Oxytocin/Lactated Ringer's (Pitocin In Lr 10 Units/1,000 Ml) 10 unit in 1,000 mls @ 100 mls/hr IV .CONTINUOUS TESFAYE Lactated Ringer's (Ringers, Lactated) 1,000 mls @ 100 mls/hr IV ASDIRECTED TESFAYE Last Admin: 03/11/20 01:24 Dose: 999 mls/hr Documented by: Lactated Ringer's (Ringers, Lactated) 1,000 mls @ 125 mls/hr IV ASDIRECTED [facility]ES[facility] Azithromycin 500 mg/ Sodium (Chloride) 250 mls @ 250 mls/hr IV ONETIME ONE Stop: 03/11/20 02:59 Last Admin: 03/11/20 02:00 Dose: 250 mls/hr Documented by: Cefazolin Sodium/Dextrose 2 gm (/ Premix) 50 mls @ 100 mls/hr IV ONETIME ONE Stop: 03/11/20 02:29 Last Admin: 03/11/20 06:27 Dose: Not Given Documented by: Lactated Ringer's (Ringers, Lactated) Confirm Administered Dose 2,000 mls @ as directed .ROUTE .STK-MED ONE Stop: 03/11/20 01:56 Cefazolin Sodium/Dextrose 2 gm (/ Premix) 50 mls @ 100 mls/hr IV ONETIME ONE Stop: 03/11/20 03:31 Last Admin: 03/11/20 06:49 Dose: Not Given Documented by: Dextrose/Lactated Ringer's (Dextrose 5%-Lactated Ringers) 1,000 mls @ 125 mls/hr IV ASDIRECTED [facility] Stop: 03/11/20 12:37 Last Admin: 03/11/20 05:19 Dose: 125 mls/hr Documented by: Ibuprofen (Motrin) 600 mg PO Q6H PRN PRN Reason: mild pain or fever Ketorolac Tromethamine (Toradol) Confirm Administered Dose 30 mg .ROUTE .STK-MED ONE Stop: 03/11/20 01:56 Ketorolac Tromethamine (Toradol) 30 mg IVPUSH Q6H [facility] Stop: 03/11/20 21:01 Last Admin: 03/11/20 20:23 Dose: 30 mg Documented by: Lidocaine/Epinephrine (Xylocaine-Mpf 2%-Epi 1:200,000) Confirm Administered Dose 20 ml .ROUTE .STK-MED ONE Stop: 03/11/20 01:57 Meperidine HCl (Meperidine) Confirm Administered Dose 50 mg .ROUTE .STK-MED ONE Stop: 03/11/20 02:21 Metoclopramide HCl (Reglan) 10 mg IVPUSH ONETIME ONE Stop: 03/11/20 01:40 Last Admin: 03/11/20 01:49 Dose: 10 mg Documented by: Miscellaneous Medication (Phenylephrine 1 Mg/10 Ml-Ns) Confirm Administered Dose 1 mg .ROUTE .STK-MED ONE Stop: 03/11/20 02:36 Misoprostol (Cytotec) 25 mcg VAG ONETIME ONE Stop: 03/10/20 08:32 Last Admin: 03/10/20 09:12 Dose: 25 mcg Documented by: Morphine Sulfate (Duramorph Pf) Confirm Administered Dose 1 mg .ROUTE .STK-MED ONE Stop: 03/11/20 01:56 Nalbuphine HCl (Nubain) 10 mg IVPUSH Q2H PRN PRN Reason: Pain Ondansetron HCl (Zofran) 4 mg IVPUSH Q4H PRN PRN Reason: Nausea/Vomiting Ondansetron HCl (Zofran) Confirm Administered Dose 4 mg .ROUTE .STK-MED ONE Stop: 03/11/20 01:56 Ondansetron HCl (Zofran) 4 mg IVPUSH ONETIME PRN PRN Reason: Nausea/Vomiting Oxytocin (Pitocin) Confirm Administered Dose 10 unit .ROUTE .STK-MED ONE Stop: 03/11/20 01:56 Sodium Bicarbonate (Sodium Bicarbonate 8.4%) Confirm Administered Dose 50 meq .ROUTE .STK-MED ONE Stop: 03/11/20 01:57 Sodium Chloride (Saline Flush) 10 ml FLUSH ASDIRECTED PRN PRN Reason: Keep Vein Open Sodium Chloride (Saline Flush) 10 ml FLUSH ASDIRECTED PRN PRN Reason: Keep Vein Open - Interaction Infant Disposition, : in Room with Family Infant Interaction: Holding Feeding: Attempted ; Nursed Fair/Poor Support Person: - Recovery Exam Fundal Tone: Firm Fundal Level: At Umbilicus Fundal Placement: Midline Lochia Amount: Scant Lochia Color: Rubra/Red Perineum Description: Intact, Minimal Bruising/Swelling Episiotomy/Laceration: None Bladder Status: Voiding Urinary Elimination: Voided - Exam General: Alert, Oriented, Cooperative Lungs: Clear to Auscultation, Normal Respiratory Effort Cardiovascular: Regular Rate, Regular Rhythm GI/Abdominal Exam: Soft, Tender (appropriate ) Extremities: Normal Inspection Skin: Warm, Dry, Intact Wound/Incisions: Healing Well, No Drainage - Problem List & Annotations (1) 40 weeks gestation of SNOMED Code(s): 21933471 Code(s): Z3A.40 - Status: Acute Current Visit: Yes (2) Gestational hypertension SNOMED Code(s): 453811065 Code(s): O13.9 - GESTATIONAL HTN W/O SIGNIFICANT PROTEINURIA, UNSP TRIMESTER Status: Acute Current Visit: Yes Qualifiers: Trimester: third trimester Qualified Code(s): O13.3 - Gestational [-induced] hypertension without significant proteinuria, third trimester (3) Non-reassuring status SNOMED Code(s): 814046502 Code(s): BAR3683 - Status: Acute Current Visit: Yes (4) S/P primary low transverse SNOMED Code(s): 294502111, 38151975, 181753761, 072027001, 544172865 Code(s): Z98.891 - Status: Acute Current Visit: Yes (5) macrosomia SNOMED Code(s): 28821469 Code(s): O36.60X0 - MATERNAL CARE FOR EXCESS GROWTH, UNSP TRIMESTER, UNSP Status: Acute Current Visit: Yes Qualifiers: Fetus number: single or unspecified fetus Trimester: third trimester Qualified Code(s): O36.63X0 - Maternal care for excessive growth, third trimester, not applicable or unspecified (6) Acute blood loss anemia SNOMED Code(s): 636948306 Code(s): D62 - ACUTE POSTHEMORRHAGIC ANEMIA Status: Acute Current Visit: Yes - Problem List Review Problem List Initiated/Reviewed/Updated: Yes - Assessment Assessment:: POD#2 - Plan Plan:: * BP's more in mild range yesterday. Will continue to monitor. PLan discharge home tomorrow. Will set up BP check next week * Breast feeding with some supplementation * Routine cares * Discharge home tomorrow
[2020-03-13] MEDS: Docusate Sodium 100 MG Cap PO PRN ×2 (07:35→23:50)
[2020-03-13] MEDS: Simethicone 80 MG Tab.Chew PO PRN (12:52)
[2020-03-14] MEDS: Acetaminophen/oxyCODONE 325-5 MG Tab PO PRN ×2 (06:19→10:26)
[2020-03-14] MEDS: Simethicone 80 MG Tab.Chew PO PRN (06:25)
--- NOTE | 2020-03-14 07:04 | PCM.DCSUM1 ---
Discharge Summary - Discharge Data Discharge Date: 03/14/20 Discharge Disposition: Home, Self-Care 01 Condition: Good - Referral to Home Health Primary Care Physician: PCP None - Discharge Diagnosis/Problem(s) (1) 40 weeks gestation of SNOMED Code(s): 64800854 ICD Code: Z3A.40 - 40 WEEKS GESTATION OF Status: Acute Current Visit: Yes (2) Gestational hypertension SNOMED Code(s): 888959739 ICD Code: O13.9 - GESTATIONAL HTN W/O SIGNIFICANT PROTEINURIA, UNSP TRIMESTER Status: Acute Current Visit: Yes Qualifiers: Trimester: third trimester Qualified Code(s): O13.3 - Gestational [-induced] hypertension without significant proteinuria, third trimester (3) Non-reassuring status SNOMED Code(s): 457149785 ICD Code: OAG3092 - Status: Acute Current Visit: Yes (4) S/P primary low transverse SNOMED Code(s): 538916183, 24180258, 880071974, 733715427, 400230966 ICD Code: Z98.891 - HISTORY OF UTERINE SCAR FROM PREVIOUS SURGERY Status: Acute Current Visit: Yes (5) macrosomia SNOMED Code(s): 31026143 ICD Code: O36.60X0 - MATERNAL CARE FOR EXCESS GROWTH, UNSP TRIMESTER, UNSP Status: Acute Current Visit: Yes Qualifiers: Fetus number: single or unspecified fetus Trimester: third trimester Qualified Code(s): O36.63X0 - Maternal care for excessive growth, third trimester, not applicable or unspecified (6) Acute blood loss anemia SNOMED Code(s): 522470146 ICD Code: D62 - ACUTE POSTHEMORRHAGIC ANEMIA Status: Acute Current Visit: Yes - Patient Summary/Data Operative Procedure(s) Performed: Primary low transverse - vacuum assist Complications: None Recommended Follow-up Testing/Procedures: Follow up in 1 week for BP check Hospital Course: 29 y/o at 40 2/7 wks presented for elective IOL. Once admitted found to have several mild range BP's c/w gestational HTN . Induction done with cytotec/ulloa bulb and eventually pitocin/AROM. Once achieved 8-9 cm did have some recurrent variables and when became completely dilated did have sustained tachycardia into the 200's. For this reason was taken for a PLTCS. See operative note. Notable for macrosomia and hemorrhage. Patient, however, did very well with appropriate drop in Hb. She was eventually discharged home on POD#3 - Patient Instructions Diet: Regular Diet as Tolerated Activity: No Lifting Over 20 Pounds (15 pounds ) Activity, Other: Pelvic rest for 6 weeks Driving: Do Not Drive (While taking narcotics ) Showering/Bathing: May Shower, No Tub Bathing/Swimming Wound/Incision Care: Keep Operative Site/Wound Site Clean and Dry Notify Provider of: Fever, Increased Pain, Swelling and Redness, Drainage, Nausea and/or Vomiting - Discharge Plan *PRESCRIPTION DRUG MONITORING PROGRAM REVIEWED*: No *COPY OF PRESCRIPTION DRUG MONITORING REPORT IN PATIENT NATACHA: No Prescriptions/Med Rec: Acetaminophen/oxyCODONE [Percocet 325-5 MG] 1 - 2 tab PO Q4H PRN #25 tablet PRN Reason: Pain (Severe 7-10) Home Medications: Home Meds Loratadine [Claritin] 10 mg PO DAILY 03/10/20 [History] Pnv No.95/Ferrous Fum/Folic AC [ Tablet] 1 each PO DAILY 03/10/20 [History] Acetaminophen/oxyCODONE [Percocet 325-5 MG] 1 - 2 tab PO Q4H PRN #25 tablet 03/13/20 [Rx] Docusate Sodium [Colace] 100 mg PO Q12H PRN cap 03/13/20 [Rx] Ibuprofen [Motrin] 600 mg PO Q6H PRN tablet 03/13/20 [Rx] Referrals: Gia Shankar MD [Physician] - (1 weeks for BP check / incision check 4-5 weeks for check ) - Discharge Summary/Plan Comment DC Time >30 min.: No - Patient Data Vitals - Most Recent: Last Vital Signs Temp 36.6 C 03/14/20 00:58 Pulse 76 03/14/20 00:58 Resp 16 03/14/20 00:58 BP 121/71 03/14/20 00:58 Pulse Ox 98 03/14/20 00:58 Weight - Most Recent: 103.419 kg Med Orders - Current: Current Medications Diphenhydramine HCl (Benadryl) 25 mg IVPUSH Q6H PRN PRN Reason: Itching or Nausea Docusate Sodium (Colace) 100 mg PO Q12H PRN PRN Reason: Constipation Last Admin: 03/13/20 23:50 Dose: 100 mg Documented by: Ibuprofen (Motrin) 600 mg PO Q6H PRN PRN Reason: mild pain or fever Last Admin: 03/13/20 10:08 Dose: 600 mg Documented by: Ondansetron HCl (Zofran) 4 mg IV Q8H PRN PRN Reason: Nausea/Vomiting Oxycodone/Acetaminophen (Percocet 325-5 Mg) 1 tab PO Q4H PRN PRN Reason: Pain (moderate 4-6) Last Admin: 03/12/20 01:10 Dose: 1 tab Documented by: Oxycodone/Acetaminophen (Percocet 325-5 Mg) 2 tab PO Q4H PRN PRN Reason: Pain (severe 7-10) Last Admin: 03/14/20 06:19 Dose: 2 tab Documented by: Simethicone (Simethicone) 80 mg PO Q6H PRN PRN Reason: Gas Last Admin: 03/14/20 06:25 Dose: 80 mg Documented by: Discontinued Medications Bupivacaine HCl (Sensorcaine-Mpf 0.25%) 10 ml .ROUTE .STK-MED ONE Stop: 03/11/20 00:01 Carboprost Tromethamine (Hemabate Ds) Confirm Administered Dose 250 mcg .ROUTE .STK-MED ONE Stop: 03/11/20 02:30 Cefazolin Sodium (Ancef) Confirm Administered Dose 2 gm .ROUTE .STK-MED ONE Stop: 03/11/20 01:56 Cefazolin Sodium (Ancef) Confirm Administered Dose 2 gm .ROUTE .STK-MED ONE Stop: 03/11/20 02:52 Citric Acid/Sodium Citrate (Bicitra Solution) 30 ml PO ONETIME ONE Stop: 03/11/20 01:40 Last Admin: 03/11/20 01:47 Dose: 30 ml Documented by: Diphenhydramine HCl (Benadryl) 25 mg IVPUSH Q6H PRN PRN Reason: pruritis Diphenhydramine HCl (Benadryl) 25 mg IVPUSH Q6H PRN PRN Reason: Pruritis Last Admin: 03/11/20 05:46 Dose: 25 mg Documented by: Ephedrine Sulfate (Ephedrine Sulfate) 5 mg IVPUSH ASDIRECTED PRN PRN Reason: Hypotension Fentanyl (Sublimaze) 100 mcg EPIDUR Q3H PRN PRN Reason: Pain Last Admin: 03/10/20 20:43 Dose: 100 mcg Documented by: Fentanyl (Sublimaze) Confirm Administered Dose 100 mcg .ROUTE .STK-MED ONE Stop: 03/11/20 01:59 Fentanyl (Sublimaze) 50 mcg IVPUSH Q5M PRN PRN Reason: Pain Fentanyl/Bupivacaine HCl (Fentanyl/Bupivacaine/Ns 2 Mcg-0.125% 100 Ml) 100 ml EPIDUR ASDIRECTED PRN PRN Reason: Pain Last Admin: 03/10/20 20:43 Dose: 100 ml Documented by: Oxytocin/Lactated Ringer's (Pitocin In Lr 10 Units/1,000 Ml) 10 unit in 1,000 mls @ 12 mls/hr IV TITRATE TESFAYE; Protocol Last Titration: 03/11/20 01:38 Dose: 0 munits/min, 0 mls/hr Documented by: Oxytocin/Lactated Ringer's (Pitocin In Lr 10 Units/1,000 Ml) 10 unit in 1,000 mls @ 100 mls/hr IV .CONTINUOUS TESFAYE Lactated Ringer's (Ringers, Lactated) 1,000 mls @ 100 mls/hr IV ASDIRECTED TESFAYE Last Admin: 03/11/20 01:24 Dose: 999 mls/hr Documented by: Lactated Ringer's (Ringers, Lactated) 1,000 mls @ 125 mls/hr IV ASDIRECTED TESFAYE Azithromycin 500 mg/ Sodium (Chloride) 250 mls @ 250 mls/hr IV ONETIME ONE Stop: 03/11/20 02:59 Last Admin: 03/11/20 02:00 Dose: 250 mls/hr Documented by: Cefazolin Sodium/Dextrose 2 gm (/ Premix) 50 mls @ 100 mls/hr IV ONETIME ONE Stop: 03/11/20 02:29 Last Admin: 03/11/20 06:27 Dose: Not Given Documented by: Lactated Ringer's (Ringers, Lactated) Confirm Administered Dose 2,000 mls @ as directed .ROUTE .STK-MED ONE Stop: 03/11/20 01:56 Cefazolin Sodium/Dextrose 2 gm (/ Premix) 50 mls @ 100 mls/hr IV ONETIME ONE Stop: 03/11/20 03:31 Last Admin: 03/11/20 06:49 Dose: Not Given Documented by: Dextrose/Lactated Ringer's (Dextrose 5%-Lactated Ringers) 1,000 mls @ 125 mls/hr IV ASDIRECTED [facility] Stop: 03/11/20 12:37 Last Admin: 03/11/20 05:19 Dose: 125 mls/hr Documented by: Ibuprofen (Motrin) 600 mg PO Q6H PRN PRN Reason: mild pain or fever Ketorolac Tromethamine (Toradol) Confirm Administered Dose 30 mg .ROUTE .STK-MED ONE Stop: 03/11/20 01:56 Ketorolac Tromethamine (Toradol) 30 mg IVPUSH Q6H [facility] Stop: 03/11/20 21:01 Last Admin: 03/11/20 20:23 Dose: 30 mg Documented by: Lidocaine/Epinephrine (Xylocaine-Mpf 2%-Epi 1:200,000) Confirm Administered Dose 20 ml .ROUTE .STK-MED ONE Stop: 03/11/20 01:57 Meperidine HCl (Meperidine) Confirm Administered Dose 50 mg .ROUTE .STK-MED ONE Stop: 03/11/20 02:21 Metoclopramide HCl (Reglan) 10 mg IVPUSH ONETIME ONE Stop: 03/11/20 01:40 Last Admin: 03/11/20 01:49 Dose: 10 mg Documented by: Miscellaneous Medication (Phenylephrine 1 Mg/10 Ml-Ns) Confirm Administered Dose 1 mg .ROUTE .STK-MED ONE Stop: 03/11/20 02:36 Misoprostol (Cytotec) 25 mcg VAG ONETIME ONE Stop: 03/10/20 08:32 Last Admin: 03/10/20 09:12 Dose: 25 mcg Documented by: Morphine Sulfate (Duramorph Pf) Confirm Administered Dose 1 mg .ROUTE .STK-MED ONE Stop: 03/11/20 01:56 Nalbuphine HCl (Nubain) 10 mg IVPUSH Q2H PRN PRN Reason: Pain Ondansetron HCl (Zofran) 4 mg IVPUSH Q4H PRN PRN Reason: Nausea/Vomiting Ondansetron HCl (Zofran) Confirm Administered Dose 4 mg .ROUTE .STKnozen-MED ONE Stop: 03/11/20 01:56 Ondansetron HCl (Zofran) 4 mg IVPUSH ONETIME PRN PRN Reason: Nausea/Vomiting Oxytocin (Pitocin) Confirm Administered Dose 10 unit .ROUTE .STKnozen-MED ONE Stop: 03/11/20 01:56 Sodium Bicarbonate (Sodium Bicarbonate 8.4%) Confirm Administered Dose 50 meq .ROUTE .STKnozen-MED ONE Stop: 03/11/20 01:57 Sodium Chloride (Saline Flush) 10 ml FLUSH ASDIRECTED PRN PRN Reason: Keep Vein Open Sodium Chloride (Saline Flush) 10 ml FLUSH ASDIRECTED PRN PRN Reason: Keep Vein Open
[2020-03-14] MEDS: Ibuprofen 600 MG Tab PO PRN (08:56)
== END 2020-03-14 12:35 | disposition home or self-care (01) | DRG 787 ==
LOC: JD.OB 02:15 → OBSVTOIN 03-11 02:15 → JD.OB 03-11 02:16
PROVIDERS: ADMIT Obstetrics & Gynecology; ATTEND Obstetrics & Gynecology
PROC: 10D00Z1 Extraction of Products of Conception, Low, Open Approach (ICD-10-PCS; principal; 2020-03-11)
PROC: 10907ZC Drainage of Amniotic Fluid, Therapeutic from Products of Conception, Via Natural or Artificial Opening (ICD-10-PCS; 2020-03-11)
PROC: 3E0P7VZ Introduction of Hormone into Female Reproductive, Via Natural or Artificial Opening (ICD-10-PCS; 2020-03-11)
PROC: 3E0R3BZ Introduction of Anesthetic Agent into Spinal Canal, Percutaneous Approach (ICD-10-PCS; 2020-03-11)
PROC: 00HU33Z Insertion of Infusion Device into Spinal Canal, Percutaneous Approach (ICD-10-PCS; 2020-03-11)
DX: O13.4 Gestational [pregnancy-induced] hypertension without significant proteinuria, complicating childbirth (principal); D62 Acute posthemorrhagic anemia; O36.63X0 Maternal care for excessive fetal growth, third trimester, not applicable or unspecified; O99.02 Anemia complicating childbirth; O76 Abnormality in fetal heart rate and rhythm complicating labor and delivery; Z20.828 Contact with and (suspected) exposure to other viral communicable diseases; Z3A.40 40 weeks gestation of pregnancy; Z37.0 Single live birth; Z87.891 Personal history of nicotine dependence
CPT/HCPCS: 01967; 01968; 36415; 51702; 59025; 82565; 84450; 84460; 85025; 85027; 86592; 86850; 86900; 86901; 94762; A9270-GY; J0456; J0690; J1200; J1885; J2175; J2274; J2370; J2405; J2590; J2765; J3010; J3490; J7050; J7120; J7121; U0002